=== PATIENT | female | born 1960 | race Caucasian/White ===

== ENCOUNTER 2017-09-01 13:14 | Day surgery (SDC) | payer OTHER ==
[~2017-09-01 13:14] MED LIST: BUPR150ER PO; Bactrim Ds Tab1 EACH PO; CLON.5 PO; CYCL10 PO; DEXA4 PO; HYDR1TAB94 PO; METO10 PO; MIRALAX17 GM PO; Norco 5-325 Ta1 EACH PO; OXYC10TA19 PO; STOOL SOFTENER1 EAC1 PO; SULTRIDS PO; TRAZ50 PO; TRIA80TC TOP
== END 2017-09-01 23:27 | disposition home or self-care (01) ==
LOC: CT 13:14
PROC: 0QB23ZX Excision of Right Pelvic Bone, Percutaneous Approach, Diagnostic (ICD-10-PCS; principal; 2017-09-01)
DX: C79.51 Secondary malignant neoplasm of bone (principal); C50.411 Malignant neoplasm of upper-outer quadrant of right female breast; C77.3 Secondary and unspecified malignant neoplasm of axilla and upper limb lymph nodes; Z17.0 Estrogen receptor positive status [ER+]
CPT/HCPCS: 20220; 77012; 88307; 88341; 88342

== ENCOUNTER 2018-03-17 09:59 | Day surgery (SDC) | payer OTHER | END 2018-03-17 23:06 | disposition home or self-care (01) | LOC: MOI MAM 09:59 | PROC: BH00ZZZ Plain Radiography of Right Breast (ICD-10-PCS; principal; 2018-03-17) | DX: C50.911 Malignant neoplasm of unspecified site of right female breast (principal) | CPT/HCPCS: 19281 ==

== ENCOUNTER 2018-03-24 06:54 | Day surgery (SDC) | payer OTHER ==
[~2018-03-24] VITALS: Ht 162.6 cm; Wt 88.4 kg
[2018-03-24] MEDS ORDERED: Faslodex250 MG/5 M (07:17)
[2018-03-24] MEDS ORDERED: IBRANCE125 MG (07:17)
[2018-03-24] MEDS ORDERED: METO10 (07:18)
[2018-03-24] MEDS ORDERED: ASPI325 (07:18)
[2018-03-24] MEDS ORDERED: VENL75ER (07:18)
== END 2018-03-24 10:07 | disposition home or self-care (01) ==
LOC: ORSCSDS 06:54
PROVIDERS: Surgery
PROC: 0HBT0ZZ Excision of Right Breast, Open Approach (ICD-10-PCS; principal; 2018-03-24 08:00)
DX: Z85.3 Personal history of malignant neoplasm of breast (principal); C50.911 Malignant neoplasm of unspecified site of right female breast; R92.0 Mammographic microcalcification found on diagnostic imaging of breast; J44.9 Chronic obstructive pulmonary disease, unspecified; F41.8 Other specified anxiety disorders; G51.0 Bell's palsy; F17.210 Nicotine dependence, cigarettes, uncomplicated; Z79.899 Other long term (current) drug therapy
CPT/HCPCS: 88307; J0690; J1100; J2250; J2370; J2405; J3010; J7120

== ENCOUNTER → 2019-01-18 | Outpatient (CLI) | payer OTHER ==
[~2019-01-18] MED LIST changes: +ANASTROZOLE 1MG; +ASPI325; +Faslodex250 MG/5 M; +IBRANCE125 MG; +METO10; +TAMO10 PO; +VENL75ER
[2019-01-18 18:42] LABS: BASOPHILS ABSOLUTE AUTO 0.03 K/mm3 (0.00-0.23); BASOPHILS PERCENT AUTO 1 % (0-2); EOSINOPHILS ABSOLUTE AUTO 0.02 K/mm3 (0.00-0.68); EOSINOPHILS PERCENT AUTO 1 % (0-6); Hematocrit 40.6 % (33.0-51.0); Hemoglobin 13.3 g/dL (11.5-16.0); IMMATURE GRAN ABSOLUTE AUTO 0.01 K/mm3 (0.00-0.10); IMMATURE GRAN PERCENT AUTO 0 % (0-1); LYMPHOCYTES ABSOLUTE AUTO 1.38 K/mm3 (0.84-5.20); LYMPHOCYTES PERCENT AUTO 32 % (21-46); MONOCYTES ABSOLUTE AUTO 0.52 K/mm3 (0.16-1.47); MONOCYTES PERCENT AUTO 12 % (4-13); Mean Corpuscular HGB 36.3 pg (26.0-34.0); Mean Corpuscular HGB Conc 32.8 g/dL (31.5-36.5); Mean Corpuscular Volume 111 fL (80-100); Mean Platelet Volume 10.2 fL (9.1-12.4); NEUTROPHILS ABSOLUTE AUTO 2.39 K/mm3 (1.96-9.15); NEUTROPHILS PERCENT AUTO 55 % (41-73); Platelet Count 191 K/mm3 (150-400); RDW Coefficient Variation 14.5 % (11.7-14.2); RDW Standard Deviation 60.1 fL (35.1-46.3); Red Blood Cell Count 3.66 M/mm3 (3.80-5.20); White Blood Cell Count 4.35 K/mm3 (4.00-11.30)
[2019-01-18 19:05] LABS: Alanine Aminotransfer (ALT/SGP 22 U/L (12-78); Albumin, Blood 4.2 g/dL (3.4-5.0); Albumin/Globulin Ratio 1.4 (0.8-1.8); Alk Phos 54 U/L (50-136); Anion Gap 7 mmol/L (6-16); Aspartate Aminotrans (AST/SGOT 18 U/L (12-37); Bilirubin, Total 0.3 mg/dL (0.1-1.0); Blood Urea Nitrogen 9 mg/dL (8-24); Bun/Creatinine Ratio 11.8 (12.0-20.0); CO2, Blood 25 mmol/L (21-32); Calcium, Blood 8.8 mg/dL (8.5-10.1); Chloride, Blood 108 mmol/L (98-108); Creatinine, Blood 0.77 mg/dL (0.40-1.00); Glomerular Filtration Rate >60 (60-); Glucose, Blood 86 mg/dL (70-99); Potassium, Blood 4.3 mmol/L (3.5-5.5); Sodium, Blood 140 mmol/L (136-145); Total Protein, Blood 7.2 g/dL (6.4-8.2)
== END | disposition home or self-care (01) ==
LOC: LAB 18:25 → LAB SHORT 18:25
PROVIDERS: Nurse Practitioner Family
DX: R60.0 Localized edema (principal)
CPT/HCPCS: 80053; 83880; 85025

== ENCOUNTER 2019-05-07 19:02 | Emergency (ER) | payer OTHER ==
[~2019-05-07] VITALS: Ht 162.6 cm; Wt 95.2 kg
[~2019-05-07 19:02] MED LIST changes: -ANASTROZOLE 1MG; -TAMO10 PO
[2019-05-07] MEDS ORDERED: ANASTROZOLE 1MG (19:17)
[2019-05-07] MEDS ORDERED: TAMO10 PO (19:18)
[2019-05-07] MEDS ORDERED: METO10 PO (19:18)
[2019-05-07 19:53] LABS: BASOPHILS ABSOLUTE AUTO 0.04 K/mm3 (0.00-0.23); BASOPHILS PERCENT AUTO 1 % (0-2); EOSINOPHILS ABSOLUTE AUTO 0.05 K/mm3 (0.00-0.68); EOSINOPHILS PERCENT AUTO 1 % (0-6); Hematocrit 38.6 % (33.0-51.0); IMMATURE GRAN ABSOLUTE AUTO 0.01 K/mm3 (0.00-0.10); IMMATURE GRAN PERCENT AUTO 0 % (0-1); LYMPHOCYTES ABSOLUTE AUTO 2.03 K/mm3 (0.84-5.20); LYMPHOCYTES PERCENT AUTO 42 % (21-46); MONOCYTES ABSOLUTE AUTO 0.56 K/mm3 (0.16-1.47); MONOCYTES PERCENT AUTO 12 % (4-13); Mean Corpuscular HGB 36.2 pg (26.0-34.0); Mean Corpuscular HGB Conc 33.7 g/dL (31.5-36.5); Mean Corpuscular Volume 108 fL (80-100); Mean Platelet Volume 9.7 fL (9.1-12.4); NEUTROPHILS ABSOLUTE AUTO 2.17 K/mm3 (1.96-9.15); NEUTROPHILS PERCENT AUTO 45 % (41-73); Platelet Count 164 K/mm3 (150-400); RDW Coefficient Variation 14.5 % (11.7-14.2); RDW Standard Deviation 57.5 fL (35.1-46.3); Red Blood Cell Count 3.59 M/mm3 (3.80-5.20); White Blood Cell Count 4.86 K/mm3 (4.00-11.30)
[2019-05-07 20:40] LABS: Alanine Aminotransfer (ALT/SGP 16 U/L (12-78); Albumin, Blood 3.8 g/dL (3.4-5.0); Albumin/Globulin Ratio 1.2 (0.8-1.8); Alk Phos 57 U/L (50-136); Anion Gap 7 mmol/L (6-16); Aspartate Aminotrans (AST/SGOT 12 U/L (12-37); Bilirubin, Total 0.3 mg/dL (0.1-1.0); Blood Urea Nitrogen 10 mg/dL (8-24); Bun/Creatinine Ratio 13.1 (12.0-20.0); CO2, Blood 26 mmol/L (21-32); Calcium, Blood 9.4 mg/dL (8.5-10.1); Chloride, Blood 106 mmol/L (98-108); Creatinine, Blood 0.76 mg/dL (0.40-1.00); Globulin, Blood 3.2 g/dL (2.2-4.0); Glomerular Filtration Rate >60 (60-); Glucose, Blood 87 mg/dL (70-99); Potassium, Blood 3.6 mmol/L (3.5-5.5); Sodium, Blood 139 mmol/L (136-145); Troponin I <0.015 ng/mL (0.000-0.040)
== END 2019-05-07 22:45 | disposition home or self-care (01) ==
LOC: ER 19:02
PROVIDERS: Physician Assistant
DX: H53.9 Unspecified visual disturbance (principal); R68.84 Jaw pain; C50.919 Malignant neoplasm of unspecified site of unspecified female breast; C41.4 Malignant neoplasm of pelvic bones, sacrum and coccyx; F41.9 Anxiety disorder, unspecified; F17.210 Nicotine dependence, cigarettes, uncomplicated; Z72.0 Tobacco use; Z79.899 Other long term (current) drug therapy
CPT/HCPCS: 36415; 70450; 71046; 80053; 84484; 85025; 93005; 93010; 99284-25